=== PATIENT | female | born 1940 | race Caucasian/White ===

== ENCOUNTER 2016-11-27 13:05 | Emergency (ER) | payer MEDICARE, MEDICAID ==
[2016-11-27 13:13] VITALS: TEMP 97.9; BMI 36.1
[2016-11-27] MEDS ORDERED: DiphenhydrAMINE 50 mg/ml Inj IVP STA (13:42)
[2016-11-27 14:57] LABS: EOS % 0.4 % (1.5-5.0); GRAN # 2.76 (1.4-6.5); GRAN % 53.5 % (50.0-68.0); HEMOGLOBIN 12.4 g/dL (12.0-16.0); LYMPH % 38.1 % (22.0-35.0); MEAN CELL VOLUME 86.2 fl (80.0-105.0); MEAN CORPUSCULAR HGB CONC 34.8 g/dl (31.0-37.0); MEAN PLATELET VOLUME 11.2 fl (7.0-11.0); MONO # 0.4 (0.1-0.6); PLATELET COUNT 201 10^3/uL (120.0-450.0); RBC 4.13 10^6/uL (3.5-6.1); RED CELL DISTRIBUTION WIDTH 12.7 % (11.5-14.5); WHITE BLOOD COUNT 5.2 10^3/ul (4.5-11.0)
[2016-11-27 15:12] LABS: ALB/GLOB RATIO 1.2 (1.1-1.8); ALBUMIN 4.4 g/dL (3.0-4.8); ALT/SGPT 29 U/L (7-56); AST/SGOT 29 U/L (15-39); BLOOD UREA NITROGEN 14 mg/dL (7-21); CALCIUM 9.9 mg/dL (8.4-10.5); GFR AFRICAN-AMERICAN > 60; GFR NON-AFRICAN AMERICAN > 60
--- NOTE | 2016-11-27 15:34 | ED PDOC ---
Arrival/HPI - History of Present Illness Time/Duration: < week Symptom Onset: Sudden Symptom Course: Intermittent Quality: Aching, Throbbing Severity Level: Severe - General Chief Complaint: ENT Problem Time Seen by Provider: 11/27/16 13:22 - History of Present Illness Narrative History of Present Illness (Text): 11/27/16 15:34 76yo F with PMHx of HTN, DM, degenerative disc disease here for evaluation of severe neck pain and headache. Patient states that the pain started 3 days ago, described as intermittent, begins on the right side of the upper neck and right posterior head and radiates to the entire head. Palpation of the head makes the pain worse. Bright Light makes the pain worse. Never has had similar symptoms in the past. She states that she does not want to turn her head due to worsening pain. Patient also reports that she has been taking tylenol and ibuprofen which were releiving her pain over the past two days for a few hours, however, today she has not obtained any relief. Denies any nausea, no vomiting. no fevers or chills. No sick contacts. No chest pain. no sob. no visual disturbances. no auditory changes. No abd pain. She reports that she is supposed to have open heart valvular repair on 11/30 at [facility] in [place]. She is unable to provide any more history about her heart condition. PMHx: HTN, DM, DJD PSHx: Bilateral Knee replacement (Ra Harrison) Past Medical History - Provider Review Nursing Documentation Reviewed: Yes - Infectious Disease Hx of Infectious Diseases: None - Tetanus Immunization Tetanus Immunization: Unknown - Reproductive Menopause: Yes - Cardiac Hx Cardiac Disorders: Yes Hx Hypertension: Yes - Pulmonary Hx Respiratory Disorders: No - Neurological Hx Neurological Disorder: Yes Hx Dementia: Yes Hx Headaches: Yes Hx Migraine: Yes - HEENT Hx HEENT Disorder: No - Renal Hx Renal Disorder: No - Endocrine/Metabolic Hx Endocrine Disorders: Yes Hx Diabetes Mellitus Type 2: Yes - Hematological/Oncological Hx Blood Disorders: No - Integumentary Hx Dermatological Disorder: No - Musculoskeletal/Rheumatological Hx Musculoskeletal Disorders: Yes Hx Degenerative Joint Disease: Yes Hx Falls: Yes Hx Osteoarthritis: Yes - Gastrointestinal Hx Gastrointestinal Disorders: Yes (Gastritis) - Genitourinary/Gynecological Hx Genitourinary Disorders: No - Psychiatric Hx Psychophysiologic Disorder: No Hx Substance Use: No - Surgical History Hx Orthopedic Surgery: Yes (BL knee replacement) - Anesthesia Hx Anesthesia: Yes Hx Anesthesia Reactions: No Hx Malignant Hyperthermia: No - Suicidal Assessment Feels Threatened In Home Enviroment: No Family/Social History - Physician Review Nursing Documentation Reviewed: Yes Family/Social History: Unknown Family HX Smoking Status: Never Smoked Hx Alcohol Use: No Hx Substance Use: No Allergies/Home Meds Allergies/Adverse Reactions: Allergies No Known Allergies Allergy (Verified 11/27/16 13:13) Home Medications: Home Meds Medication Instructions Recorded Confirmed Acetaminophen/Butalbital/Caf 1 tab PO PRN PRN 11/27/16 11/27/16 [Fioricet] Brimonidine 0.2% [Alphagan 0.2% 1 drop LEFTEYE TID 11/27/16 11/27/16 Opht] Celecoxib [Celecoxib] 1 tab PO DAILY 11/27/16 11/27/16 Colchicine [Colcrys] 1 tab PO DAILY 11/27/16 11/27/16 Cyanocobalamin (Vitamin B-12) 1 ml SQ QWK 11/27/16 11/27/16 [Liquid B12] Diclofenac Sodium [Pennsaid] 1 appful TD DAILY 11/27/16 11/27/16 Difluprednate [Durezol] 1 drop LEFTEYE DAILY 11/27/16 11/27/16 Ergocalciferol (Vitamin D2) 1.25 mg PO QWK 11/27/16 11/27/16 [Vitamin D2] Ibandronate Sodium [Boniva] 70 mg PO DAILY 11/27/16 11/27/16 Linaclotide [Linzess] 1 tab PO DAILY 11/27/16 11/27/16 Memantine [Namenda] 28 mg PO DAILY 11/27/16 11/27/16 Oxycodone HCl/Acetaminophen 1 tab PO PRN PRN 11/27/16 11/27/16 [Oxycodone-Acetaminophen 5-325] Pregabalin [Lyrica] 1 tab PO TID 11/27/16 11/27/16 Rosuvastatin Calcium [Crestor] 1 tab PO DAILY 11/27/16 11/27/16 Sitagliptin Phos/Metformin HCl 1 tab PO BID 11/27/16 11/27/16 [Janumet 50-1,000 mg Tablet] Solifenacin Succinate [Vesicare] 1 tab PO DAILY 11/27/16 11/27/16 Timolol [Betimol] 1 drop LEFTEYE DAILY 11/27/16 11/27/16 amLODIPine [Norvasc] 1 tab PO DAILY 11/27/16 11/27/16 Review of Systems - Physician Review All systems were reviewed & negative as marked: Yes - Review of Systems Constitutional: Normal Eyes: Photophobia ENT: Normal Respiratory: absent: SOB, Cough Cardiovascular: absent: Chest Pain, Edema, Calf Pain Gastrointestinal: absent: Abdominal Pain, Nausea, Vomiting Genitourinary Female: absent: Dysuria Musculoskeletal: absent: Arthralgias, Back Pain Skin: absent: Rash, Pruritis Neurological: Headache. absent: Dizziness, Focal Weakness, Gait Changes Endocrine: absent: Diaphoresis Physical Exam Vital Signs Reviewed: Yes Temperature: Afebrile Blood Pressure: Normal Pulse: Regular Respiratory Rate: Normal Appearance: Positive for: Well-Appearing, Uncomfortable Pain Distress: Moderate Mental Status: Positive for: Alert and Oriented X 3 - Systems Exam Head: Present: Atraumatic, Normocephalic, Other (Tenderness on palpation of right posterior scalp and upper right neck. ) Extroacular Muscles: Present: EOMI Neck: Present: Paraspinal Tenderness. No: Meningeal Signs, MIDLINE TENDERNESS Respiratory/Chest: Present: Clear to Auscultation. No: Good Air Exchange, Respiratory Distress, Accessory Muscle Use, Wheezes, Rhonchi Cardiovascular: Present: Normal S1, S2. No: Murmurs Abdomen: No: Tenderness, Distention, Rebound, Guarding Upper Extremity: Present: Normal Inspection Lower Extremity: Present: Normal Inspection Neurological: Present: GCS=15 Skin: Present: Warm, Dry, Normal Color Psychiatric: Present: Alert, Oriented x 3 Medical Decision Making ED Course and Treatment: 11/27/16 15:44 76yo F with headache and neck pain - CBC/CMP - Reglan and Benadryl - Cyclobenzaprine, Toradol - CT head - MRI neck - Reassess and dispo 11/27/16 16:34 CT Head - No acute hemorrhage. 11/27/16 18:22 MRI taken. Awaiting Radiologist review 11/27/16 18:56 MRI neck with some degenerative disease, no significant spinal cord disease. Discussed findings with patient. Patient is cleared for discharge. All questions and concerns addressed. Patient understands and agrees with plan. ( Ra Harrison) The pts main complaint to me is posterior neck pain. This does radiate up to her occipital scalp and her headache I believe is secondary. She has little active rom of her neck due to pain although I am able to passively range it further. her neuro exam is non-focal, there is nothing else to suggest meningitis, and she is quite tender all over her paracervical musculature- I believe this mechanical in nature. MRI done no acute findings. the pt did report improvement with rx in the ED. (Arjun Cifuentes) - Lab Interpretations Lab Results: 11/27/16 14:30 11/27/16 14:30 Lab Results 11/27/16 14:30: Sodium 140, Potassium 3.9, Chloride 101, Carbon Dioxide 29, Anion Gap 14, BUN 14, Creatinine 0.5, Est GFR ( Amer) > 60, Est GFR (Non- Af Amer) > 60, Random Glucose 101, Calcium 9.9, Total Bilirubin 0.3, AST 29, ALT 29, Alkaline Phosphatase 70, Total Protein 8.1, Albumin 4.4, Globulin 3.7, Albumin/Globulin Ratio 1.2 11/27/16 14:30: WBC 5.2, RBC 4.13, Hgb 12.4, Hct 35.6 L, MCV 86.2, MCH 30.0, MCHC 34.8, RDW 12.7, Plt Count 201, MPV 11.2 H, Gran % 53.5, Lymph % (Auto) 38.1 H, [place] % (Auto) 8.0 H, Eos % (Auto) 0.4 L, Baso % (Auto) 0.0, Gran # 2.76 , Lymph # 2.0, [place] # 0.4, Eos # 0.0, Baso # 0.00 - RAD Interpretation Radiology Orders: 11/27/16 13:37 HEAD W/O CONTRAST [CT] Stat 11/27/16 18:05 SPINAL CANAL CERVICAL W/O CONT [MRI] Stat - Medication Orders Current Medication Orders: Discontinued Medications Cyclobenzaprine HCl (Flexeril) 10 mg PO STAT STA Stop: 11/27/16 15:52 Last Admin: 11/27/16 15:58 Dose: 10 mg Diphenhydramine HCl (Benadryl) 25 mg IVP STAT STA Stop: 11/27/16 13:43 Last Admin: 11/27/16 14:35 Dose: 25 mg Ketorolac Tromethamine (Toradol) 10 mg IVP STAT STA Stop: 11/27/16 15:52 Last Admin: 11/27/16 15:58 Dose: 10 mg Ketorolac Tromethamine (Toradol) 30 mg IM STAT STA Stop: 11/27/16 16:06 Last Admin: 11/27/16 16:09 Dose: 30 mg Ketorolac Tromethamine (Toradol) Confirm Administered Dose 30 mg .ROUTE .STK- MED ONE Stop: 11/27/16 16:06 Last Admin: 11/27/16 16:09 Dose: Metoclopramide HCl (Reglan) 10 mg IVP STAT STA Stop: 11/27/16 13:38 Last Admin: 11/27/16 14:35 Dose: 10 mg Morphine Sulfate (Morphine) 4 mg IVP STAT STA Stop: 11/27/16 17:33 Last Admin: 11/27/16 18:13 Dose: 4 mg - PA / [employer]K CLERK / Resident Statement / has reviewed & agrees with the documentation as recorded. / has examined the patient and agrees with the treatment plan. Disposition/Present on Arrival - Present on Arrival Any Indicators Present on Arrival: No History of DVT/PE: No History of Uncontrolled Diabetes: No Urinary Catheter: No History of Decub. Ulcer: No History Surgical Site Infection Following: None - Disposition Have Diagnosis and Disposition been Completed?: Yes Disposition Time: 18:57 Patient Plan: Discharge - Disposition Diagnosis: Neck pain Disposition: HOME/ ROUTINE Condition: GOOD Discharge Instructions (ExitCare): Cervical Strain (GEN) Additional Instructions: 1. Follow up with your Primary care Physician within 3 days. 2. Take pain meds and muscle relaxant as needed sparingly 3. Return to the ER with any concerning symptoms. Prescriptions: Cyclobenzaprine [Flexeril] 5 mg PO BID PRN #14 tab PRN Reason: Muscle Spasm Ibuprofen [Motrin Tab] 400 mg PO Q8 #21 tab Referrals: Shon Price MD [Primary Care Provider] - Follow up with primary Forms: [employer] (Ukrainian)
--- NOTE | 2016-11-27 16:25 | CT ---
PROCEDURE: CT HEAD WITHOUT CONTRAST. HISTORY: headache COMPARISON: None available. TECHNIQUE: Axial computed tomography images were obtained through the head/brain without intravenous contrast. Radiation dose: Total exam DLP = 725.84 mGy-cm. This CT exam was performed using one or more of the following dose reduction techniques: Automated exposure control, adjustment of the mA and/or kV according to patient size, and/or use of iterative reconstruction technique. FINDINGS: HEMORRHAGE: No intracranial hemorrhage. BRAIN: No mass effect or edema. No atrophy or chronic microvascular ischemic changes. VENTRICLES: Unremarkable. No hydrocephalus. CALVARIUM: Unremarkable. PARANASAL SINUSES: Unremarkable as visualized. No significant inflammatory changes. MASTOID AIR CELLS: Unremarkable as visualized. No inflammatory changes. OTHER FINDINGS: None. IMPRESSION: No intracranial mass, hemorrhage or evidence of acute infarct.
[2016-11-27] MEDS ORDERED: Morphine 4 mg/ml ISec IVP STA (17:32)
[2016-11-27 18:27] VITALS: O2SAT 100
[2016-11-27 19:31] VITALS: BP 131/63; PULSE 87; RESP 18
--- NOTE | 2016-11-28 12:49 | MRI ---
PROCEDURE: MR CERVICAL SPINE WITHOUT CONTRAST HISTORY: neck pain, headache COMPARISON: None available. TECHNIQUE: Multiecho multiplanar sequences were performed through the cervical spine without the use of intravenous contrast. FINDINGS: Normal lordotic curvature. Craniocervical junction unremarkable. Vertebral body heights preserved. No marrow signal abnormality. Normal cervical cord. No paraspinal abnormality. C2-C3: No disc herniation, spinal canal stenosis or neural foraminal narrowing. C3-C4: Posterior disc ridge complex effacing the CSF space ventrally with bilateral uncovertebral facet disease and bilateral foraminal stenosis. C4-C5: Disc bulge with central canal stenosis and bilateral spondylotic foraminal stenosis. C5-C6: Disc bulge CSF space indentation and flattening of the ventral margin of the cord and bilateral spondylotic foraminal stenosis. C6-C7: Disc bulge with thecal sac indentation and bilateral proximal foraminal stenosis. C7-T1: No disc herniation, spinal canal stenosis or neural foraminal narrowing. OTHER FINDINGS: None. IMPRESSION: Multilevel disc bulging as discussed above.
== END 2016-11-27 19:10 | disposition home or self-care (01) ==
LOC: ED 13:05
DX: M54.2 Cervicalgia (principal); I10 Essential (primary) hypertension; E11.9 Type 2 diabetes mellitus without complications
CPT/HCPCS: 70450; 72141; 80053; 85025; 96372; 96374; 96375; 99285; J1200; J1885; J2270; J2765

== ENCOUNTER 2016-12-05 01:13 | Observation (INO) | payer MEDICARE, MEDICAID ==
[2016-12-05 01:14] VITALS: BMI 36.1
[2016-12-05 01:22] VITALS: RESP 18; TEMP 98.2
--- NOTE | 2016-12-05 01:38 | ED PDOC ---
Arrival/HPI - General Chief Complaint: Back Pain Time Seen by Provider: 12/05/16 01:32 - History of Present Illness Narrative History of Present Illness (Text): 12/05/16 02:18 76yo female with neck pain. Pt states she has a hx of this exact type of pain. She also states she was recently seen in the ER and had an MRI done. Also states she saw her PMD this week as well. Denies upper extremity numbness, weakness, pain or discoloration. States her pain feels similar to previous. Denies any f/c, denies other complaints. Past Medical History - Provider Review Nursing Documentation Reviewed: Yes - Infectious Disease Hx of Infectious Diseases: None - Tetanus Immunization Tetanus Immunization: Unknown - Cardiac Hx Cardiac Disorders: Yes Hx Hypertension: Yes - Pulmonary Hx Respiratory Disorders: No - Neurological Hx Neurological Disorder: Yes Hx Dementia: Yes Hx Headaches: Yes Hx Migraine: Yes - HEENT Hx HEENT Disorder: No - Renal Hx Renal Disorder: No - Endocrine/Metabolic Hx Endocrine Disorders: Yes Hx Diabetes Mellitus Type 2: Yes - Hematological/Oncological Hx Blood Disorders: No - Integumentary Hx Dermatological Disorder: No - Musculoskeletal/Rheumatological Hx Musculoskeletal Disorders: Yes Hx Degenerative Joint Disease: Yes Hx Falls: Yes Hx Osteoarthritis: Yes - Gastrointestinal Hx Gastrointestinal Disorders: Yes (Gastritis) - Genitourinary/Gynecological Hx Genitourinary Disorders: No - Psychiatric Hx Psychophysiologic Disorder: No Hx Substance Use: No - Surgical History Hx Orthopedic Surgery: Yes (BL knee replacement) - Anesthesia Hx Anesthesia: Yes Hx Anesthesia Reactions: No Hx Malignant Hyperthermia: No - Suicidal Assessment Feels Threatened In Home Enviroment: No Family/Social History Family/Social History: Unknown Family HX Smoking Status: Never Smoked Hx Alcohol Use: No Hx Substance Use: No Allergies/Home Meds Allergies/Adverse Reactions: Allergies No Known Allergies Allergy (Verified 11/27/16 13:13) Home Medications: Home Meds Medication Instructions Recorded Confirmed Acetaminophen/Butalbital/Caf 1 tab PO PRN PRN 11/27/16 12/05/16 [Fioricet] Brimonidine 0.2% [Alphagan 0.2% 1 drop LEFTEYE TID 11/27/16 12/05/16 Opht] Celecoxib [Celecoxib] 1 tab PO DAILY 11/27/16 12/05/16 Colchicine [Colcrys] 1 tab PO DAILY 11/27/16 12/05/16 Cyanocobalamin (Vitamin B-12) 1 ml SQ QWK 11/27/16 12/05/16 [Liquid B12] Diclofenac Sodium [Pennsaid] 1 appful TD DAILY 11/27/16 12/05/16 Difluprednate [Durezol] 1 drop LEFTEYE DAILY 11/27/16 12/05/16 Ergocalciferol (Vitamin D2) 1.25 mg PO QWK 11/27/16 12/05/16 [Vitamin D2] Ibandronate Sodium [Boniva] 70 mg PO DAILY 11/27/16 12/05/16 Linaclotide [Linzess] 1 tab PO DAILY 11/27/16 12/05/16 Memantine [Namenda] 28 mg PO DAILY 11/27/16 12/05/16 Oxycodone HCl/Acetaminophen 1 tab PO PRN PRN 11/27/16 12/05/16 [Oxycodone-Acetaminophen 5-325] Pregabalin [Lyrica] 1 tab PO TID 11/27/16 12/05/16 Rosuvastatin Calcium [Crestor] 1 tab PO DAILY 11/27/16 12/05/16 Sitagliptin Phos/Metformin HCl 1 tab PO BID 11/27/16 12/05/16 [Janumet 50-1,000 mg Tablet] Solifenacin Succinate [Vesicare] 1 tab PO DAILY 11/27/16 12/05/16 Timolol [Betimol] 1 drop LEFTEYE DAILY 11/27/16 12/05/16 amLODIPine [Norvasc] 1 tab PO DAILY 11/27/16 12/05/16 Physical Exam - Physical Exam Narrative Physical Exam (Text): 12/05/16 02:22 - Review of Systems Constitutional: Normal. absent: Fatigue, Weight Change, Fevers Eyes: Normal ENT: denies sore throat, denies tristhmus Respiratory: Normal. absent: SOB, Cough, Sputum Cardiovascular: absent: Chest Pain, Palpitations, Syncope Gastrointestinal: Normal. absent: Abdominal Pain, Diarrhea, Nausea, Vomiting Genitourinary: Normal. absent: Dysuria, Frequency, Hematuria, vaginal bleeding Musculoskeletal: Neck pain. absent: Arthralgias, Back Pain Skin: no rashes, no erythema Neurological: absent: Focal Weakness Endocrine: Normal Hemo/Lymphatic: Normal Psychiatric: No suicidal or homicidal ideations Physical exam Patient appears age appropriate in no distress, speaking full sentences without difficulty - Systems Exam Head: Present: Atraumatic, Normocephalic Pupils: Present: PERRL Extroacular Muscles: Present: EOMI Conjunctiva: Present: Normal Mouth: Present: Moist Mucous Membranes Neck: Present: Normal Range of Motion. R. paraspinal tenderness to palpation and hypertonicity. Pain quality reproducible with palpation. No: MIDLINE TENDERNESS Respiratory/Chest: Present: Clear to Auscultation, Good Air Exchange. No: Respiratory Distress, Accessory Muscle Use, Tachypneic Cardiovascular: Present: Regular Rate and Rhythm, Peripheal Pulses Present. Abdomen: Present: Normal Bowel Sounds. No: Tenderness, Distention, Peritoneal Signs, Rebound, Guarding Back: Present: Normal Inspection. No: Midline Tenderness, Paraspinal Tenderness Upper Extremity: Present: Normal Inspection. No: Cyanosis, Edema Lower Extremity: Present: Normal Inspection. No: Edema Neurological: Present: GCS=15, Speech Normal, cranial nerves II through XII fully intact with no cerebellar abnormality, neurosensory fully intact. No focal neurological deficits. Skin: Present: Warm, Dry, Normal Color. No: Rashes Lymphatic: Present: OX3, NI, NC Psychiatric: Present: Alert, Oriented x 3, Normal Insight, Normal Concentration Vital Signs Reviewed: Yes Vital Signs Temp Pulse Resp BP Pulse Ox 12/05/16 01:20 98.2 F 84 18 112/64 99 Temperature: Afebrile Blood Pressure: Normal Pulse: Regular Respiratory Rate: Normal Appearance: Positive for: Well-Appearing Pain Distress: Mild Mental Status: Positive for: Alert and Oriented X 3 Medical Decision Making ED Course and Treatment: Progress Notes: 76yo female with neck pain. On exam, Normal Range of Motion. R. paraspinal tenderness to palpation and hypertonicity. Pain quality reproducible with palpation. No midline tenderness. Previous MRI from 11/27/2016 reviewed IMPRESSION: Multilevel disc bulging as discussed above. Previous Head CT from 11/27/2016 reviewed IMPRESSION: No intracranial mass, hemorrhage or evidence of acute infarct. 12/05/16 03:08 pt still c/o pain morphine ordered states she does not feel comfortable being dc'd home no PMD at [facility] 12/05/16 03:[address] Izquierdo, accepted obs to hospitalist service pt aware of and agrees with plan - Lab Interpretations Lab Results: 12/05/16 02:55 12/05/16 02:55 Lab Results 12/05/16 02:55: Sodium 139, Potassium 4.5, Chloride 100, Carbon Dioxide 26, Anion Gap 18, BUN 15, Creatinine 0.5, Est GFR ( Amer) > 60, Est GFR (Non- Af Amer) > 60, Random Glucose 111 H, Calcium 9.4, Total Bilirubin 0.4, AST 31, ALT 28, Alkaline Phosphatase 59, Total Protein 7.6, Albumin 3.9, Globulin 3.7, Albumin/Globulin Ratio 1.1 12/05/16 02:55: WBC 5.4, RBC 3.61, Hgb 10.6 L, Hct 31.1 L, MCV 86.1, MCH 29.4, MCHC 34.1, RDW 12.6, Plt Count 220, MPV 11.7 H, Gran % 45.4 L, Lymph % (Auto) 45.3 H, [place] % (Auto) 8.7 H, Eos % (Auto) 0.4 L, Baso % (Auto) 0.2, Gran # 2.46 , Lymph # 2.5, [place] # 0.5, Eos # 0.0, Baso # 0.01 - Medication Orders Current Medication Orders: Discontinued Medications Diazepam (Valium) 5 mg PO ONCE ONE Stop: 12/05/16 01:33 Last Admin: 12/05/16 01:41 Dose: 5 mg Ketorolac Tromethamine (Toradol) 30 mg IM STAT STA Stop: 12/05/16 01:33 Last Admin: 12/05/16 01:41 Dose: 30 mg Morphine Sulfate (Morphine) 6 mg IVP STAT STA Stop: 12/05/16 02:48 Last Admin: 12/05/16 02:58 Dose: 6 mg Disposition/Present on Arrival - Present on Arrival Any Indicators Present on Arrival: No History of DVT/PE: No History of Uncontrolled Diabetes: No Urinary Catheter: No History of Decub. Ulcer: No History Surgical Site Infection Following: None - Disposition Have Diagnosis and Disposition been Completed?: Yes Diagnosis: Neck pain Disposition: HOSPITALIZED Disposition Time: 03:44 Patient Plan: Observation Patient Problems: Current Active Problems Problem Status Onset Neck pain Acute Condition: FAIR
[2016-12-05 03:36] LABS: ALB/GLOB RATIO 1.1 (1.1-1.8); ALKALINE PHOSPHATASE 59 U/L (38-133); ALT/SGPT 28 U/L (7-56); AST/SGOT 31 U/L (15-39); BILIRUBIN,TOTAL 0.4 mg/dL (0.2-1.3); BLOOD UREA NITROGEN 15 mg/dL (7-21); CALCIUM 9.4 mg/dL (8.4-10.5); CARBON DIOXIDE 26 mmol/L (21-33); CHLORIDE 100 mmol/L (98-107); GFR AFRICAN-AMERICAN > 60; GLUCOSE,RANDOM 111 mg/dL (70-110); POTASSIUM 4.5 mmol/L (3.6-5.0); SODIUM 139 mmol/L (132-148); TOTAL PROTEIN 7.6 g/dL (5.8-8.3)
[2016-12-05 03:52] LABS: BASO # 0.01 K/mm3 (0.0-2.0); BASO % 0.2 % (0.0-3.0); EOS % 0.4 % (1.5-5.0); GRAN # 2.46 (1.4-6.5); GRAN % 45.4 % (50.0-68.0); HEMATOCRIT 31.1 % (36.0-48.0); LYMPH # 2.5 (1.2-3.4); LYMPH % 45.3 % (22.0-35.0); MEAN CELL VOLUME 86.1 fl (80.0-105.0); MEAN CORPUSCULAR HEMOGLOBIN 29.4 pg (25.0-35.0); MEAN CORPUSCULAR HGB CONC 34.1 g/dl (31.0-37.0); MEAN PLATELET VOLUME 11.7 fl (7.0-11.0); MONO # 0.5 (0.1-0.6); MONO % 8.7 % (1.0-6.0); RED CELL DISTRIBUTION WIDTH 12.6 % (11.5-14.5); WHITE BLOOD COUNT 5.4 10^3/ul (4.5-11.0)
--- NOTE | 2016-12-05 04:10 | CP.PCM.HP ---
<Federico Carmichael - Last Filed: 12/05/16 04:39> History of Present Illness - History of Present Illness History of Present Illness: CC: Neck pain HPI: Pt is a 76 year old female with pmh sig for HTN, aortic stenosis, DM2, and cervical bulging discs that presents to ED with intractable neck pain. Patient reports she has had pain for past week. She reports being seen in the ED last week and evaluated for same pain. She had an MRI done showing disc bulging at C3 -C4, C4-C5, C5-C6. C6-C7 withcentral canal stenosis and foraminal stenosis throughout. Patient reports seeing her PMD Dr. Albert kong in the week and recieving pain medications and soft collar to wear. She reports wearing the soft collar and taking medication without resolution of her pain. She denies any numbness, weakness, change in skin color, or focal deficits in her upper extremities. Patient reports limited range of motion of her neck with poor mobility turning to the right. Patient denies chest pain, shortness of breath, abdominal pain, f/c/n/v. PMD: as above PSH: Knee surgery, breast biopsy, b/l knee replacement FMH: Denies SH: Denies tobacco, EOTH, ID, Lives alone All: NKDA Meds: See MAR Present on Admission - Present on Admission Any Indicators Present on Admission: No History of DVT/PE: No History of Uncontrolled Diabetes: No Urinary Catheter: No Decubitus Ulcer Present: No Review of Systems - Review of Systems All systems: reviewed and no additional remarkable complaints except Review of Systems: except for mentioned in HPI Past Patient History - Infectious Disease Hx of Infectious Diseases: None - Tetanus Immunizations Tetanus Immunization: Unknown - Past Medical History & Family History Past Medical History?: Yes - Past Social History Smoking Status: Never Smoked Alcohol: None Drugs: Denies - CARDIAC Hx Cardiac Disorders: Yes Hx Hypertension: Yes - PULMONARY Hx Respiratory Disorders: No - NEUROLOGICAL Hx Neurological Disorder: Yes Hx Dementia: Yes Hx Migraine: Yes - HEENT Hx HEENT Problems: No - RENAL Hx Chronic Kidney Disease: No - ENDOCRINE/METABOLIC Hx Endocrine Disorders: Yes Hx Diabetes Mellitus Type 2: Yes - HEMATOLOGICAL/ONCOLOGICAL Hx Blood Disorders: No - INTEGUMENTARY Hx Dermatological Problems: No - MUSCULOSKELETAL/RHEUMATOLOGICAL Hx Musculoskeletal Disorders: Yes Hx Degenerative Joint Disease: Yes Hx Falls: Yes Hx Osteoarthritis: Yes - GASTROINTESTINAL Hx Gastrointestinal Disorders: Yes (Gastritis) - GENITOURINARY/GYNECOLOGICAL Hx Genitourinary Disorders: No - PSYCHIATRIC Hx Psychophysiologic Disorder: No Hx Substance Use: No - SURGICAL HISTORY Hx Orthopedic Surgery: Yes (BL knee replacement) - ANESTHESIA Hx Anesthesia: Yes Hx Anesthesia Reactions: No Hx Malignant Hyperthermia: No Meds Allergies/Adverse Reactions: Allergies Allergy/AdvReac Type Severity Reaction Status Date / Time No Known Allergies Allergy Verified 11/27/16 13:13 Physical Exam - Head Exam Head Exam: ATRAUMATIC, NORMAL INSPECTION, NORMOCEPHALIC - Eye Exam Eye Exam: EOMI, PERRL - ENT Exam ENT Exam: Mucous Membranes Moist, Normal Exam - Neck Exam Neck exam: Positive for: Tenderness (right sided paravertebral muscles). Negative for: Full Rom Additional comments: Limited ROM of neck, able to turn to right 20-30 degrees, able to turn left 45- 60 degrees - Respiratory Exam Respiratory Exam: Clear to Auscultation Bilateral, NORMAL BREATHING PATTERN - Cardiovascular Exam Cardiovascular Exam: REGULAR RHYTHM, +S1, +S2, Systolic Murmur (significant systolic murmur, Aortic Stenosis ) - GI/Abdominal Exam GI & Abdominal Exam: Normal Bowel Sounds, Soft - Extremities Exam Extremities exam: Positive for: normal inspection, pedal pulses present - Back Exam Back exam: NORMAL INSPECTION - Neurological Exam Neurological exam: Alert, CN II-XII Intact, Normal Gait, Oriented x3, Reflexes Normal Additional comments: Motor and sensory grossly intact, no focal deficits, weakness, paraesthesias noted in upper extremities - Psychiatric Exam Psychiatric exam: Normal Affect, Normal Mood - Skin Skin Exam: Dry, Intact, Normal Color, Warm Results - Vital Signs Recent Vital Signs: Last Vital Signs Temp 98.2 F 12/05/16 01:20 Pulse 84 12/05/16 01:20 Resp 18 12/05/16 01:20 BP 112/64 12/05/16 01:20 Pulse Ox 99 12/05/16 01:20 - Labs Result Diagrams: 12/05/16 02:55 12/05/16 02:55 Labs: Laboratory Results - last 24 hr 12/05/16 12/05/16 02:55 02:55 WBC 5.4 RBC 3.61 Hgb 10.6 L Hct 31.1 L MCV 86.1 MCH 29.4 MCHC 34.1 RDW 12.6 Plt Count 220 MPV 11.7 H Gran % 45.4 L Lymph % (Auto) 45.3 H [place] % (Auto) 8.7 H Eos % (Auto) 0.4 L Baso % (Auto) 0.2 Gran # 2.46 Lymph # 2.5 [place] # 0.5 Eos # 0.0 Baso # 0.01 Sodium 139 Potassium 4.5 Chloride 100 Carbon Dioxide 26 Anion Gap 18 BUN 15 Creatinine 0.5 Est GFR ( Amer) > 60 Est GFR (Non-Af Amer) > 60 Random Glucose 111 H Calcium 9.4 Total Bilirubin 0.4 AST 31 ALT 28 Alkaline Phosphatase 59 Total Protein 7.6 Albumin 3.9 Globulin 3.7 Albumin/Globulin Ratio 1.1 Assessment & Plan - Assessment and Plan (Free Text) Assessment: Pt is a 76 year old female with pmh sig for HTN, aortic stenosis, DM2, and cervical bulging discs that presents to ED with intractable neck pain. Patient reports she has had pain for past week. Plan: 1. Cervical vertebral disc bulging - MRI of cervical spine showing multilevel disc bulging as well as evidence of bilateral proximal foraminal stenosis in C3-C4, C5-C6, C6-C7 - PE shows no neurological deficits in UE b/l - Patient has seen PMD and prescribed pain medications - Advise her to follow up with PMD for spinal surgeon and pain management referral - Pain control with PO medications - Flexeril 10mg, Percocet 5/325mg, Kasey - Cervical soft collar - Neurosurgery consult, recs appreciated 2. Hx of HTN - Stable - Continue to monitor 3. Hx of DM2 - Continue home metformin - ACHS 3. GI ppx - Pepcid Case discussed and reviewed with attending - Date & Time Date: 12/05/16 Time: 04:13 <Madelin Izquierdo - Last Filed: 12/06/16 03:03> Results - Vital Signs Recent Vital Signs: Last Vital Signs Temp 98.2 F 12/05/16 08:13 Pulse 76 12/05/16 08:13 Resp 18 12/05/16 08:13 BP 96/58 L 12/05/16 08:13 Pulse Ox 98 12/05/16 08:13 - Labs Result Diagrams: 12/05/16 02:55 12/05/16 02:55
[2016-12-05] MEDS ORDERED: Oxycodone/Acetaminophen 5/325 mg Tab PO PRN (04:17)
[2016-12-05] MEDS ORDERED: Apap-Butalbital-Caffeine 325-50-40mg Tab PO PRN (04:33)
[2016-12-05] MEDS: Oxycodone/Acetaminophen 5/325 mg Tab PO SCH ×2 (04:40→10:32)
[2016-12-05 08:14] VITALS: BP 96/58; PULSE 76; O2SAT 98
[2016-12-05] MEDS ORDERED: LINACLOTIDE PO SCH (10:00)
[2016-12-05] MEDS ORDERED: Non Formulary Medication (Sitagliptin Phos/Metformin Hcl [Janumet 50-1,000 Mg Tablet] 1 TA PO SCH (10:00)
[2016-12-05] MEDS ORDERED: CELECOXIB PO SCH (10:00)
--- NOTE | 2016-12-05 13:21 | CP.PCM.CON ---
History of Present Illness - History of Present Illness History of Present Illness: SPINE CONSULT Pt seen and examined. Full consult dictated..Rec soft collar as needed, along with PT. Would cont Toradol if ok medically to give. Pt sched for open heart surg in [place] on Wednesday so would stop NSAID's. Past Patient History - Infectious Disease Hx of Infectious Diseases: None - Tetanus Immunizations Tetanus Immunization: Unknown - Past Medical History & Family History Past Medical History?: Yes - Past Social History Smoking Status: Never Smoked - CARDIAC Hx Cardiac Disorders: Yes Hx Hypertension: Yes - PULMONARY Hx Respiratory Disorders: No - NEUROLOGICAL Hx Neurological Disorder: Yes Hx Dementia: Yes Hx Migraine: Yes - HEENT Hx HEENT Problems: No - RENAL Hx Chronic Kidney Disease: No - ENDOCRINE/METABOLIC Hx Endocrine Disorders: Yes Hx Diabetes Mellitus Type 2: Yes - HEMATOLOGICAL/ONCOLOGICAL Hx Blood Disorders: No - INTEGUMENTARY Hx Dermatological Problems: No - MUSCULOSKELETAL/RHEUMATOLOGICAL Hx Musculoskeletal Disorders: Yes Hx Degenerative Joint Disease: Yes Hx Falls: Yes Hx Osteoarthritis: Yes - GASTROINTESTINAL Hx Gastrointestinal Disorders: Yes (Gastritis) - GENITOURINARY/GYNECOLOGICAL Hx Genitourinary Disorders: No - PSYCHIATRIC Hx Psychophysiologic Disorder: No - SURGICAL HISTORY Hx Orthopedic Surgery: Yes (BL knee replacement) - ANESTHESIA Hx Anesthesia: Yes Hx Anesthesia Reactions: No Hx Malignant Hyperthermia: No Meds Allergies/Adverse Reactions: Allergies Allergy/AdvReac Type Severity Reaction Status Date / Time No Known Allergies Allergy Verified 11/27/16 13:13 - Medications Medications: Current Medications Acetaminophen (Tylenol 325mg Tab) 650 mg PO Q6H PRN PRN Reason: Pain, Mild (1-3) Atorvastatin Calcium (Lipitor) 40 mg PO DAILY [facility] Last Admin: 12/05/16 10:32 Dose: 40 mg Colchicine (Colocrys) 0.6 mg PO DAILY [facility] Last Admin: 12/05/16 10:32 Dose: 0.6 mg Famotidine (Pepcid) 20 mg PO BID [facility] Last Admin: 12/05/16 10:32 Dose: 20 mg Home Med (Home Med) 1 unit PO DAILY [facility] Home Med (Home Med) 1 unit PO DAILY [facility] Metformin HCl (Glucophage) 1,000 mg PO BID [facility] Last Admin: 12/05/16 10:32 Dose: 1,000 mg Oxycodone/Acetaminophen (Percocet 5/325 Mg Tab) 1 tab PO Q6H [facility] Stop: 12/08/16 04:31 Last Admin: 12/05/16 10:32 Dose: 1 tab Pregabalin (Lyrica) 150 mg PO TID [facility] Last Admin: 12/05/16 10:32 Dose: 150 mg Results - Vital Signs Recent Vital Signs: Last Vital Signs Temp 98.2 F 12/05/16 08:13 Pulse 76 12/05/16 08:13 Resp 18 12/05/16 08:13 BP 96/58 L 12/05/16 08:13 Pulse Ox 98 12/05/16 08:13 - Labs Result Diagrams: 12/05/16 02:55 12/05/16 02:55
--- NOTE | 2016-12-05 16:31 | CP.PCM.DIS ---
<PONCE HOUSER - Last Filed: 12/05/16 16:34> Provider - Provider Date of Admission: 12/05/16 03:42 Attending physician: Eliel Francois MD Primary care physician: Shon Price MD Consults: Neurosurg: Baltazar Time Spent in preparation of Discharge (in minutes): 45 Hospital Course - Lab Results Lab Results: Most Recent Lab Values WBC 5.4 10^3/ul (4.5-11.0) 12/05/16 02:55 RBC 3.61 10^6/uL (3.5-6.1) 12/05/16 02:55 Hgb 10.6 g/dL (12.0-16.0) L 12/05/16 02:55 Hct 31.1 % (36.0-48.0) L 12/05/16 02:55 MCV 86.1 fl (80.0-105.0) 12/05/16 02:55 MCH 29.4 pg (25.0-35.0) 12/05/16 02:55 MCHC 34.1 g/dl (31.0-37.0) 12/05/16 02:55 RDW 12.6 % (11.5-14.5) 12/05/16 02:55 Plt Count 220 10^3/uL (120.0-450.0) 12/05/16 02:55 MPV 11.7 fl (7.0-11.0) H 12/05/16 02:55 Gran % 45.4 % (50.0-68.0) L 12/05/16 02:55 Lymph % (Auto) 45.3 % (22.0-35.0) H 12/05/16 02:55 [place] % (Auto) 8.7 % (1.0-6.0) H 12/05/16 02:55 Eos % (Auto) 0.4 % (1.5-5.0) L 12/05/16 02:55 Baso % (Auto) 0.2 % (0.0-3.0) 12/05/16 02:55 Gran # 2.46 (1.4-6.5) 12/05/16 02:55 Lymph # 2.5 (1.2-3.4) 12/05/16 02:55 [place] # 0.5 (0.1-0.6) 12/05/16 02:55 Eos # 0.0 (0.0-0.7) 12/05/16 02:55 Baso # 0.01 K/mm3 (0.0-2.0) 12/05/16 02:55 Sodium 139 mmol/L (132-148) 12/05/16 02:55 Potassium 4.5 mmol/L (3.6-5.0) 12/05/16 02:55 Chloride 100 mmol/L (98-107) 12/05/16 02:55 Carbon Dioxide 26 mmol/L (21-33) 12/05/16 02:55 Anion Gap 18 (10-20) 12/05/16 02:55 BUN 15 mg/dL (7-21) 12/05/16 02:55 Creatinine 0.5 mg/dL (0.5-1.4) 12/05/16 02:55 Est GFR ( Amer) > 60 12/05/16 02:55 Est GFR (Non-Af Amer) > 60 12/05/16 02:55 Random Glucose 111 mg/dL (70-110) H 12/05/16 02:55 Calcium 9.4 mg/dL (8.4-10.5) 12/05/16 02:55 Total Bilirubin 0.4 mg/dL (0.2-1.3) 12/05/16 02:55 AST 31 U/L (15-39) 12/05/16 02:55 ALT 28 U/L (7-56) 12/05/16 02:55 Alkaline Phosphatase 59 U/L (38-133) 12/05/16 02:55 Total Protein 7.6 g/dL (5.8-8.3) 12/05/16 02:55 Albumin 3.9 g/dL (3.0-4.8) 12/05/16 02:55 Globulin 3.7 gm/dL 12/05/16 02:55 Albumin/Globulin Ratio 1.1 (1.1-1.8) 12/05/16 02:55 - Hospital Course Hospital Course: Pt is a 76 year old female with pmh sig for HTN, aortic stenosis, DM2, and cervical bulging discs that presents to ED with intractable neck pain. Patient reports she has had pain for past week. She reports being seen in the ED last week and evaluated for same pain. She had an MRI done showing disc bulging at C3 -C4, C4-C5, C5-C6. C6-C7 with central canal stenosis and foraminal stenosis throughout. Patient reports seeing her PMD Dr. Albert kong in the week and receiving pain medications and soft collar to wear. She reports wearing the soft collar and taking medication without resolution of her pain. She denies any numbness, weakness, change in skin color, or focal deficits in her upper extremities. Patient reports limited range of motion of her neck with poor mobility turning to the right. In the ED, labs were obtained. Vital signs were stable. Labs were unremarkable. Neurosurgery was consulted. Recommended soft collar, PT, and stop NSAIDs. Today, pt was seen and examined at bedside. Pt states that her neck still hurts, but denies any acute events since admission. Pt denies CP, SOB, n/v/d, abdominal pain, chills, fevers, vertigo, SPRING, or dysuria. Pt is scheduled for open heart surgery in [place] on Wednesday, thus patient will be discharged and will cont home pain medications and muscle relaxers. Discharge Exam - Head Exam Head Exam: ATRAUMATIC, NORMAL INSPECTION, NORMOCEPHALIC - Eye Exam Eye Exam: EOMI, PERRL - ENT Exam ENT Exam: Mucous Membranes Moist - Neck Exam Neck exam: Tenderness Additional comments: limited ROM, TTP - Respiratory Exam Respiratory Exam: Clear to PA & Lateral. absent: Rales, Rhonchi, Wheezes - Cardiovascular Exam Cardiovascular Exam: RRR. absent: Diastolic murmur, Gallop, Rubs, Systolic Murmur - GI/Abdominal Exam GI & Abdominal Exam: Soft. absent: Distended, Guarding, Rebound, Rigid, Tenderness - Neurological Exam Neurological exam: Alert, CN II-XII Intact, Oriented x3 - Psychiatric Exam Psychiatric exam: Normal Affect, Normal Mood - Skin Skin Exam: Dry, Intact, Normal Color, Warm Discharge Plan - Follow Up Plan Condition: FAIR Disposition: HOME/ ROUTINE Instructions: Pneumococcal Vaccine for Adults (DC), Cervical Spinal Stenosis ( DC) Additional Instructions: 1. Surgery as scheduled 2. Follow up with neurosurgery, Dr. Ledesma 3. Follow up with PMD within 1 week 4. Do not take NSAIDs such as ibuprofen and celebrex until further notice 5. Take medications as prescribed 6. Continue soft collar use 7. Return to ED if symptoms worsen Referrals: Eliel Ledesma MD [Staff Provider] - Shon Price MD [Primary Care Provider] - <Eliel Francois - Last Filed: 12/05/16 16:53> Provider - Provider Date of Admission: 12/05/16 03:42 Attending physician: Eliel Francois MD Primary care physician: Shon Price MD Hospital Course - Lab Results Lab Results: Most Recent Lab Values WBC 5.4 10^3/ul (4.5-11.0) 12/05/16 02:55 RBC 3.61 10^6/uL (3.5-6.1) 12/05/16 02:55 Hgb 10.6 g/dL (12.0-16.0) L 12/05/16 02:55 Hct 31.1 % (36.0-48.0) L 12/05/16 02:55 MCV 86.1 fl (80.0-105.0) 12/05/16 02:55 MCH 29.4 pg (25.0-35.0) 12/05/16 02:55 MCHC 34.1 g/dl (31.0-37.0) 12/05/16 02:55 RDW 12.6 % (11.5-14.5) 12/05/16 02:55 Plt Count 220 10^3/uL (120.0-450.0) 12/05/16 02:55 MPV 11.7 fl (7.0-11.0) H 12/05/16 02:55 Gran % 45.4 % (50.0-68.0) L 12/05/16 02:55 Lymph % (Auto) 45.3 % (22.0-35.0) H 12/05/16 02:55 [place] % (Auto) 8.7 % (1.0-6.0) H 12/05/16 02:55 Eos % (Auto) 0.4 % (1.5-5.0) L 12/05/16 02:55 Baso % (Auto) 0.2 % (0.0-3.0) 12/05/16 02:55 Gran # 2.46 (1.4-6.5) 12/05/16 02:55 Lymph # 2.5 (1.2-3.4) 12/05/16 02:55 [place] # 0.5 (0.1-0.6) 12/05/16 02:55 Eos # 0.0 (0.0-0.7) 12/05/16 02:55 Baso # 0.01 K/mm3 (0.0-2.0) 12/05/16 02:55 Sodium 139 mmol/L (132-148) 12/05/16 02:55 Potassium 4.5 mmol/L (3.6-5.0) 12/05/16 02:55 Chloride 100 mmol/L (98-107) 12/05/16 02:55 Carbon Dioxide 26 mmol/L (21-33) 12/05/16 02:55 Anion Gap 18 (10-20) 12/05/16 02:55 BUN 15 mg/dL (7-21) 12/05/16 02:55 Creatinine 0.5 mg/dL (0.5-1.4) 12/05/16 02:55 Est GFR ( Amer) > 60 12/05/16 02:55 Est GFR (Non-Af Amer) > 60 12/05/16 02:55 Random Glucose 111 mg/dL (70-110) H 12/05/16 02:55 Calcium 9.4 mg/dL (8.4-10.5) 12/05/16 02:55 Total Bilirubin 0.4 mg/dL (0.2-1.3) 12/05/16 02:55 AST 31 U/L (15-39) 12/05/16 02:55 ALT 28 U/L (7-56) 12/05/16 02:55 Alkaline Phosphatase 59 U/L (38-133) 12/05/16 02:55 Total Protein 7.6 g/dL (5.8-8.3) 12/05/16 02:55 Albumin 3.9 g/dL (3.0-4.8) 12/05/16 02:55 Globulin 3.7 gm/dL 12/05/16 02:55 Albumin/Globulin Ratio 1.1 (1.1-1.8) 12/05/16 02:55 Attending/Attestation - Attestation I have personally seen and examined this patient.: Yes I have fully participated in the care of the patient.: Yes I have reviewed all pertinent clinical information, including history, physical exam and plan: Yes Notes (Text): 12/05/16 16:48 76 year old female iwth past medical history of diabetes and hypertension who presented with intractable neck pain. She had a recent MRI which showed multilevel cervical disc bulges. She was admitted for observation. Her symptoms improved today. She was seen by neurosurgery who recommended to avoid NSAIDs as she is scheduled for surgery soon next week. Copy of MRI was given to patient to review with pmd/surgeon. She states she has lyrica, flexeral and ultracet. Patient is discharged home to follow up with her pmd. Follow up with neurosurgery. Avoid NSAIDs for upcoming surgery. Eliel Francois MD Hospitalist.
--- NOTE | 2016-12-06 01:23 | CON ---
DATE: 12/05/2016 REASON FOR CONSULTATION: Acute neck pain. HISTORY OF PRESENT ILLNESS: The patient is a 76-year-old young lady who states that she had severe neck pain about 20 years ago which improved with physical therapy and wearing a soft cervical collar. She is fine up until a week ago when, with no antecedent trauma, she developed acute flare up of neck pain once more. She was seen in the emergency room on . She was worried there something wrong with her brain as she had pain in the back of her head as well as her neck. Evidently a CAT scan was done which did not show any pathology. MRI of the neck was done which showed multilevel disc derangement with some foraminal narrowing and stenosis. She was given pain medicine and a soft collar to wear but she states that it was feeling a little better, but then she took the collar off at night and she woke up in the middle of the night with severe pain once more and came back to the hospital. Complicating matters somewhat is that she is scheduled for open heart surgery at [facility] in [place] this coming Wednesday. She denies any radiation into her extremities. No loss of bowel or bladder control. No loss of ability to function with her hands. No reported gait disturbance. PAST MEDICAL HISTORY: Significant for hypertension, aortic stenosis, and type II diabetes. MEDICATIONS: Are as listed on the chart. ALLERGIES: SHE IS NOT ALLERGIC TO ANY MEDICINES. PAST SURGICAL HISTORY: Significant for bilateral knee replacement as well as breast biopsy. SOCIAL HISTORY: She denies use of tobacco or alcohol. PHYSICAL EXAMINATION GENERAL: She is very tender along the cervical spinal processes and trapezial muscle distribution more in the left than the right. She can flex her chin to her chest, but her extension and lateral rotation is definitely limited and she states it is not normal for her. She moves both upper extremities fully and actively. Her sensory is intact to light touch throughout. Motor strength is 5/5 in all groups tested. She has good collar sewer strength. Good distal pulses. No Saldivar's noted. Reflexes appear symmetrical. Her MRI shows disc collapse in the mid cervical region with loss of normal lordosis. More in the way of disc bulging and placement of the cord particularly at C6-C7 level. No obvious vertebral body or spinal cord abnormalities otherwise. IMPRESSION: Acute cervical sprain. I would recommend a course of outpatient physical therapy and have her to continue to wear the collar just slowly taper it off may be starting half hour a day and then see how she does with that. I would definitely wear it at night time and then see how she does with that. Obviously if she is scheduled for open heart surgery, I really do not want to hold that up as I will talk to her doctor about discontinuing any NSAIDs and anti-inflammatories as such that might prolong bleeding time and cause a problem for her upcoming operation. We will be happy to follow her as an outpatient and proceed accordingly. Thank you for allowing me to participate in the care of your patient. Eliel Ledesma MD
== END 2016-12-05 16:34 | disposition home or self-care (01) ==
LOC: ED 01:13 → ERH 03:42 → 5RSO 06:45
PROVIDERS: ADMIT Internal Medicine; ATTEND Internal Medicine
DX: M48.02 Spinal stenosis, cervical region (principal); S13.4XXA Sprain of ligaments of cervical spine, initial encounter; I10 Essential (primary) hypertension; E11.9 Type 2 diabetes mellitus without complications; M54.2 Cervicalgia; I35.0 Nonrheumatic aortic (valve) stenosis; Z96.653 Presence of artificial knee joint, bilateral; Z79.84 Long term (current) use of oral hypoglycemic drugs
CPT/HCPCS: 80053; 85025; 96372; 96374; 99283; G0378; J1885; J2270

== ENCOUNTER 2017-01-10 11:21 | Emergency (ER) | payer MEDICARE, MEDICAID ==
[2017-01-10 11:24] VITALS: BMI 29.9
[2017-01-10 11:27] VITALS: TEMP 98.4
--- NOTE | 2017-01-10 13:17 | RAD ---
PROCEDURE: Left Knee Radiographs. HISTORY: Pain. COMPARISON: None. FINDINGS: BONES: Status post open reduction and internal fixation of an old fracture in the proximal tibia. No hardware complications. No acute displaced fracture. JOINTS: Status post total knee arthroplasty. Bone alignment is normal. JOINT EFFUSION: There is a small suprapatellar joint effusion. OTHER FINDINGS: None. IMPRESSION: No acute displaced fracture or dislocation.
--- NOTE | 2017-01-10 13:42 | ED PDOC ---
Arrival/HPI - General Chief Complaint: Lower Extremity Problem/Injury Time Seen by Provider: 01/10/17 12:10 Historian: Patient - History of Present Illness Narrative History of Present Illness (Text): 01/10/17 13:34 A 76 year old female, whose past medical history includes ORIF of the left knee , presents to the emergency department with 3-4 day duration, worsening left knee pain. The patient states that at baseline she ambulates with a cane. The patient denies trauma/injury, fevers, chills, headache, dizziness, chest pain, shortness of breath, dyspnea on exertion, cough, abdominal pain, nausea, vomiting, diarrhea, back pain, neck pain, urinary/bowel changes, or any other complaint. Time/Duration: Other (3-4 Days) Symptom Onset: Sudden Symptom Course: Unchanged Activities at Onset: Rest, Light Context: Home Past Medical History - Provider Review Nursing Documentation Reviewed: Yes - Infectious Disease Hx of Infectious Diseases: None - Tetanus Immunization Tetanus Immunization: Unknown - Cardiac Hx Cardiac Disorders: Yes Hx Hypertension: Yes - Pulmonary Hx Respiratory Disorders: No - Neurological Hx Neurological Disorder: Yes Hx Dementia: Yes Hx Migraine: Yes - HEENT Hx HEENT Disorder: No - Renal Hx Renal Disorder: No - Endocrine/Metabolic Hx Endocrine Disorders: Yes Hx Diabetes Mellitus Type 2: Yes - Hematological/Oncological Hx Blood Disorders: No - Integumentary Hx Dermatological Disorder: No - Musculoskeletal/Rheumatological Hx Musculoskeletal Disorders: Yes Hx Degenerative Joint Disease: Yes Hx Falls: Yes Hx Osteoarthritis: Yes - Gastrointestinal Hx Gastrointestinal Disorders: Yes (Gastritis) - Genitourinary/Gynecological Hx Genitourinary Disorders: No - Psychiatric Hx Psychophysiologic Disorder: No Hx Substance Use: No - Surgical History Hx Orthopedic Surgery: Yes (BL knee replacement) - Anesthesia Hx Anesthesia: Yes Hx Anesthesia Reactions: No Hx Malignant Hyperthermia: No - Suicidal Assessment Feels Threatened In Home Enviroment: No Family/Social History - Physician Review Nursing Documentation Reviewed: Yes Family/Social History: No Known Family HX Smoking Status: Never Smoked Hx Alcohol Use: No Hx Substance Use: No Allergies/Home Meds Allergies/Adverse Reactions: Allergies No Known Allergies Allergy (Verified 11/27/16 13:13) Home Medications: Home Meds Medication Instructions Recorded Confirmed Acetaminophen/Butalbital/Caf 1 tab PO PRN PRN 11/27/16 01/10/17 [Fioricet] Brimonidine 0.2% [Alphagan 0.2% 1 drop LEFTEYE TID 11/27/16 01/10/17 Opht] Colchicine [Colcrys] 1 tab PO DAILY 11/27/16 01/10/17 Cyanocobalamin (Vitamin B-12) 1 ml SQ QWK 11/27/16 01/10/17 [Liquid B12] Diclofenac Sodium [Pennsaid] 1 appful TD DAILY 11/27/16 01/10/17 Difluprednate [Durezol] 1 drop LEFTEYE DAILY 11/27/16 01/10/17 Ergocalciferol (Vitamin D2) 1.25 mg PO QWK 11/27/16 01/10/17 [Vitamin D2] Ibandronate Sodium [Boniva] 70 mg PO DAILY 11/27/16 01/10/17 Linaclotide [Linzess] 1 tab PO DAILY 11/27/16 01/10/17 Memantine [Namenda] 28 mg PO DAILY 11/27/16 01/10/17 Oxycodone HCl/Acetaminophen 1 tab PO PRN PRN 11/27/16 01/10/17 [Oxycodone-Acetaminophen 5-325] Pregabalin [Lyrica] 1 tab PO TID 11/27/16 01/10/17 Rosuvastatin Calcium [Crestor] 1 tab PO DAILY 11/27/16 01/10/17 Sitagliptin Phos/Metformin HCl 1 tab PO BID 11/27/16 01/10/17 [Janumet 50-1,000 mg Tablet] Solifenacin Succinate [Vesicare] 1 tab PO DAILY 11/27/16 01/10/17 Timolol [Betimol] 1 drop LEFTEYE DAILY 11/27/16 01/10/17 amLODIPine [Norvasc] 1 tab PO DAILY 11/27/16 01/10/17 Review of Systems - Physician Review All systems were reviewed & negative as marked: Yes Physical Exam - Physical Exam Narrative Physical Exam (Text): 01/10/17 13:36 - Review of Systems Constitutional: Normal. absent: Fatigue, Weight Change, Fevers Eyes: Normal ENT: denies sore throat, denies tristhmus Respiratory: Normal. absent: SOB, Cough, Sputum Cardiovascular: absent: Chest Pain, Palpitations, Syncope Gastrointestinal: Normal. absent: Abdominal Pain, Diarrhea, Nausea, Vomiting Genitourinary: Normal. absent: Dysuria, Frequency, Hematuria, vaginal bleeding Musculoskeletal: (+) Left knee pain. absent: Back Pain, Neck Pain Skin: no rashes, no erythema Neurological: absent: Focal Weakness Endocrine: Normal Hemo/Lymphatic: Normal Psychiatric: No suicidal or homicidal ideations Physical exam Patient appears age appropriate in no distress, speaking full sentences without difficulty - Systems Exam Head: Present: Atraumatic, Normocephalic Pupils: Present: PERRL Extroacular Muscles: Present: EOMI Conjunctiva: Present: Normal Mouth: Present: Moist Mucous Membranes Neck: Present: Normal Range of Motion. No: MIDLINE TENDERNESS, Paraspinal Tenderness Respiratory/Chest: Present: Clear to Auscultation, Good Air Exchange. No: Respiratory Distress, Accessory Muscle Use, Tachypneic Cardiovascular: Present: Regular Rate and Rhythm, Normal S1, S2, Peripheal Pulses Present. No: Murmurs Abdomen: Present: Normal Bowel Sounds. No: Tenderness, Distention, Peritoneal Signs, Rebound, Guarding Back: Present: Normal Inspection. No: Midline Tenderness, Paraspinal Tenderness Upper Extremity: Present: Normal Inspection. No: Cyanosis, Edema Lower Extremity: Present: L knee: Distal neurovascular fully intact. Patellar tenderness to palpation. Decreased ROM due to pain. No: Edema, left knee swelling when compared to the right. Warmth. Erythema. Streaking. Fluctuance. Neurological: Present: GCS=15, Speech Normal, cranial nerves II through XII fully intact with no cerebellar abnormality, neurosensory fully intact. No focal neurological deficits. Skin: Present: Warm, Dry, Normal Color. No: Rashes Lymphatic: Present: OX3, NI, NC Psychiatric: Present: Alert, Oriented x 3, Normal Insight, Normal Concentration Vital Signs Reviewed: Yes Vital Signs Temp Pulse Resp BP Pulse Ox 01/10/17 15:16 132/86 01/10/17 15:14 91 H 18 96 01/10/17 13:48 73 18 113/52 L 98 01/10/17 11:27 98.4 F 82 20 130/57 L 97 Temperature: Afebrile Blood Pressure: Hypertensive Pulse: Regular Respiratory Rate: Normal Appearance: Positive for: Well-Appearing, Non-Toxic, Comfortable Pain Distress: None Mental Status: Positive for: Alert and Oriented X 3 Medical Decision Making ED Course and Treatment: 01/10/17 13:42 Impression: A 76 year old female with 3-4 day duration, worsening left knee pain. On exam, distal neurovascular fully intact, patellar tenderness to palpation, decreased ROM due to pain. No left knee swelling when compared to the right, warmth, erythema, streaking, or fluctuance. Based on hx and PE, no suspicion for infectious process. Plan: -- Left Knee X-Ray -- Left Lower Extremity Vein Ultrasound -- Morphine and Toradol -- Reassess and disposition Prior Visits: Notes and results from previous visits were reviewed. Patient was last seen in the emergency department on 12/05/2016 for neck pain. Progress Notes: 01/10/17 13:45: On reevaluation, patient was still complaining of pain. An ultrasound and more medication was ordered. Left Knee Radiographs Dictator : TAMARA COTA MD Report Date : 01/10/2017 13:15:45 IMPRESSION: No acute displaced fracture or dislocation. 01/10/17 14:25: Patient's ultrasound is negative for DVT as per preliminary report. 01/10/17 15:23 pt ambulates with a cane in the ER states pain much better states she feels comfortable being dc'd home with outpatient f/u had an extensive d/w pt that although xrays are negative for any acute bony abnormality, it is still very important to fu with pmd and ortho specialist for further w/u and testing such as MRI to r/o any ligamentous/tendenous/meniscal injury. Pt verbalized full understanding of above discussion. Pt states she understands to return to the ER right away for new or worsening symptoms or for inability to f/u with PMD or specialist as instructed. Patient states that she fully agrees with and understands discharge instructions. States that she agrees with the plan and disposition. Verbalized and repeated discharge instructions and plan. I have given the patient opportunity to ask any additional questions. - Lab Interpretations I have reviewed the lab results: Yes - RAD Interpretation Radiology Orders: 01/10/17 12:11 KNEE LEFT 2 VIEWS (AP & LAT) [RAD] Stat 01/10/17 13:33 DUPLEX LOWER EXTRM VEIN LEFT [US] Stat - Medication Orders Current Medication Orders: Discontinued Medications Ketorolac Tromethamine (Toradol) 30 mg IM STAT STA Stop: 01/10/17 12:12 Last Admin: 01/10/17 12:17 Dose: 30 mg MAR Pain Assessment Document 01/10/17 12:17 GMD (Rec: 01/10/17 12:17 D [id number]) Pain Reassessment Is this a pain reassessment? No Sleep Is patient sleeping during reassessment? No Presence of Pain Presence of Pain Yes Location Left, Right or Bilateral Left Pain Location Body Site Knee IM Administration Charges Document 01/10/17 12:17 GMD (Rec: 01/10/17 12:17 D [id number]) Injection Site MAR Injection Site Left Deltoid Charges for Administration # of IM Administrations 1 Morphine Sulfate (Morphine) 6 mg IM STAT STA Stop: 01/10/17 13:33 Last Admin: 01/10/17 13:49 Dose: Not Given Non-Admin Reason: Patient Refused - Scribe Statement The provider has reviewed the documentation as recorded by the Scribe Hiral Belle Provider Scribe Attestation: All medical record entries made by the Scribe were at my direction and personally dictated by me. I have reviewed the chart and agree that the record accurately reflects my personal performance of the history, physical exam, medical decision making, and the department course for this patient. I have also personally directed, reviewed, and agree with the discharge instructions and disposition. Disposition/Present on Arrival - Present on Arrival Any Indicators Present on Arrival: No History of DVT/PE: No History of Uncontrolled Diabetes: No Urinary Catheter: No History of Decub. Ulcer: No History Surgical Site Infection Following: None - Disposition Have Diagnosis and Disposition been Completed?: Yes Diagnosis: Knee pain Disposition: HOME/ ROUTINE Disposition Time: 15:40 Patient Plan: Discharge Condition: GOOD Discharge Instructions (ExitCare): Arthralgia (ED), Knee Pain (ED) Additional Instructions: PLEASE RETURN TO THE EMERGENCY DEPARTMENT FOR NEW OR WORSENING SYMPTOMS. RETURN RIGHT AWAY IF YOU CANNOT FOLLOW UP WITH YOUR PRIMARY CARE DOCTOR, CLINIC, OR SPECIALIST IN 1-2 DAYS. Prescriptions: Ibuprofen [Motrin] 600 mg PO Q8 PRN #12 tab PRN Reason: Pain, Moderate (4-7) Referrals: Adarsh Brunner, DO [Staff Provider] - Follow up with primary Forms: [employer] (Algerian)
[2017-01-10 13:48] VITALS: RESP 18
[2017-01-10 15:16] VITALS: BP 132/86; PULSE 91; O2SAT 96
--- NOTE | 2017-01-10 18:32 | US ---
PROCEDURE: Left lower extremity venous US HISTORY: Leg pain and swelling. Evaluate for DVT. PHYSICIAN(S): Wu Rodriguez MD. TECHNIQUE: Duplex sonography and color-flow Doppler with graded compression were used to evaluate the deep venous system of the left lower extremity. FINDINGS: The visualized deep venous system of the left lower extremity is sonographically normal and compressible. Normal wave forms and augmentation are seen. There is no sonographic evidence for deep venous thrombosis in the visualized segments of the left lower extremity. IMPRESSION: 1. No sonographic evidence for deep venous thrombosis in the visualized segments of the left lower extremity.
== END 2017-01-10 16:00 | disposition home or self-care (01) ==
LOC: ED 11:21
DX: M25.562 Pain in left knee (principal); I10 Essential (primary) hypertension
CPT/HCPCS: 73560; 93971; 96372; 99285; J1885

== ENCOUNTER 2017-09-28 19:54 | Emergency (ER) | payer MEDICARE, MEDICAID ==
[2017-09-28 19:56] VITALS: BMI 29.9
--- NOTE | 2017-09-28 21:42 | ED PDOC ---
Arrival/HPI - General Chief Complaint: Back Pain Time Seen by Provider: 09/28/17 19:59 Past Medical History - Infectious Disease Hx of Infectious Diseases: None - Tetanus Immunization Tetanus Immunization: Unknown - Cardiac Hx Cardiac Disorders: Yes Hx Hypertension: Yes - Pulmonary Hx Respiratory Disorders: No - Neurological Hx Neurological Disorder: Yes Hx Dementia: Yes Hx Migraine: Yes - HEENT Hx HEENT Disorder: No - Renal Hx Renal Disorder: No - Endocrine/Metabolic Hx Endocrine Disorders: Yes Hx Diabetes Mellitus Type 2: Yes - Hematological/Oncological Hx Blood Disorders: No - Integumentary Hx Dermatological Disorder: No - Musculoskeletal/Rheumatological Hx Musculoskeletal Disorders: Yes Hx Degenerative Joint Disease: Yes Hx Falls: Yes Hx Osteoarthritis: Yes - Gastrointestinal Hx Gastrointestinal Disorders: Yes (Gastritis) - Genitourinary/Gynecological Hx Genitourinary Disorders: No - Psychiatric Hx Psychophysiologic Disorder: No Hx Substance Use: No - Surgical History Hx Orthopedic Surgery: Yes (BL knee replacement) - Anesthesia Hx Anesthesia: Yes Hx Anesthesia Reactions: No Hx Malignant Hyperthermia: No - Suicidal Assessment Feels Threatened In Home Enviroment: No Family/Social History Smoking Status: Never Smoked Hx Alcohol Use: No Hx Substance Use: No Allergies/Home Meds Allergies/Adverse Reactions: Allergies No Known Allergies Allergy (Verified 11/27/16 13:13) Home Medications: Home Meds Medication Instructions Recorded Confirmed Acetaminophen/Butalbital/Caf 1 tab PO PRN PRN 11/27/16 01/10/17 [Fioricet] Brimonidine 0.2% [Alphagan 0.2% 1 drop LEFTEYE TID 11/27/16 01/10/17 Opht] Colchicine [Colcrys] 1 tab PO DAILY 11/27/16 01/10/17 Cyanocobalamin (Vitamin B-12) 1 ml SQ QWK 11/27/16 01/10/17 [Liquid B12] Diclofenac Sodium [Pennsaid] 1 appful TD DAILY 11/27/16 01/10/17 Difluprednate [Durezol] 1 drop LEFTEYE DAILY 11/27/16 01/10/17 Ergocalciferol (Vitamin D2) 1.25 mg PO QWK 11/27/16 01/10/17 [Vitamin D2] Ibandronate Sodium [Boniva] 70 mg PO DAILY 11/27/16 01/10/17 Linaclotide [Linzess] 1 tab PO DAILY 11/27/16 01/10/17 Memantine [Namenda] 28 mg PO DAILY 11/27/16 01/10/17 Oxycodone HCl/Acetaminophen 1 tab PO PRN PRN 11/27/16 01/10/17 [Oxycodone-Acetaminophen 5-325] Pregabalin [Lyrica] 1 tab PO TID 11/27/16 01/10/17 Rosuvastatin Calcium [Crestor] 1 tab PO DAILY 11/27/16 01/10/17 Sitagliptin Phos/Metformin HCl 1 tab PO BID 11/27/16 01/10/17 [Janumet 50-1,000 mg Tablet] Solifenacin Succinate [Vesicare] 1 tab PO DAILY 11/27/16 01/10/17 Timolol [Betimol] 1 drop LEFTEYE DAILY 11/27/16 01/10/17 amLODIPine [Norvasc] 1 tab PO DAILY 11/27/16 01/10/17 Physical Exam Vital Signs Temp Pulse Resp BP Pulse Ox 09/28/17 20:02 98.4 F 74 18 152/84 H 98 Medical Decision Making ED Course and Treatment: 09/28/17 Patient Seen With Resident: In agreement with resident note which contains more details about the patient. Patient was seen and evaluated with resident. Came up with plan and treatment together. Disposition/Present on Arrival - Present on Arrival History of DVT/PE: No History of Uncontrolled Diabetes: No Urinary Catheter: No History of Decub. Ulcer: No History Surgical Site Infection Following: None - Disposition Referrals: Shon Price MD [Primary Care Provider] - Follow up with primary
[2017-09-28] MEDS ORDERED: Oxycodone/Acetaminophen 2.5/325 mg Tab PO STA (21:50)
--- NOTE | 2017-09-28 22:30 | ED PDOC ---
Arrival/HPI - General Historian: Patient <Primitivo Patel - Last Filed: 09/28/17 22:26> - History of Present Illness Time/Duration: < week (3 days) Symptom Course: Unchanged, Worsening Severity Level: Severe Activities at Onset: Rest Context: Home <Long Manriquez - Last Filed: 09/28/17 23:51> - General Chief Complaint: Back Pain Time Seen by Provider: 09/28/17 19:59 - History of Present Illness Narrative History of Present Illness (Text): 09/28/17 22:26 77 yo with CAD s/p CABG, dilated cardiomyopathy s/p ICD, DMII, and HLD who presents with complaint of right-sided neck pain x3 days. Denies trauma, falls , or insult that triggered the neck pain, it simply developed in the middle of the day 3 days prior and has not improved. Reports mild improvement with tylenol, none with Voltarin gel. Denies radiation of pain up/down neck, into jaw or chest, or down arms. Reports worse with most head movement or with opening jaw fully, but denies actual pain at jaw/TMJ site, only at right neck. Never had pain like this before. Denies fevers, chills, chest pain, nausea, emesis, shortness of breath, dizziness, room spinning, or focal weakness. No sense of mass at site, no dysphagia/dysphonia, no difficulty swallowing. PO intake remains at baseline. All other ROS in 12-system review negative. PMH: as above PSH: CABG, ICD placement, Cardiac cath Fam Hx: pt unsure Soc Hx: Deneis tobacco/alcohol/illicits PMD: Wassef (Primitivo Patel) Past Medical History - Provider Review Nursing Documentation Reviewed: Yes - Infectious Disease Hx of Infectious Diseases: None - Tetanus Immunization Tetanus Immunization: Unknown - Cardiac Hx Cardiac Disorders: Yes Hx Hypertension: Yes - Pulmonary Hx Respiratory Disorders: No - Neurological Hx Neurological Disorder: Yes Hx Dementia: Yes Hx Migraine: Yes - HEENT Hx HEENT Disorder: No - Renal Hx Renal Disorder: No - Endocrine/Metabolic Hx Endocrine Disorders: Yes Hx Diabetes Mellitus Type 2: Yes - Hematological/Oncological Hx Blood Disorders: No - Integumentary Hx Dermatological Disorder: No - Musculoskeletal/Rheumatological Hx Musculoskeletal Disorders: Yes Hx Degenerative Joint Disease: Yes Hx Falls: Yes Hx Osteoarthritis: Yes - Gastrointestinal Hx Gastrointestinal Disorders: Yes (Gastritis) - Genitourinary/Gynecological Hx Genitourinary Disorders: No - Psychiatric Hx Psychophysiologic Disorder: No Hx Substance Use: No - Surgical History Hx Orthopedic Surgery: Yes (BL knee replacement) - Anesthesia Hx Anesthesia: Yes Hx Anesthesia Reactions: No Hx Malignant Hyperthermia: No - Suicidal Assessment Feels Threatened In Home Enviroment: No <Primitivo Patel - Last Filed: 09/28/17 22:26> - Travel History Have you recently traveled outside [place] w/in the past 3 mons?: No - Past History Past History: Non-Contributing - Reproductive Menopause: Yes Currently : No <Long Manriquez - Last Filed: 09/28/17 23:51> Family/Social History - Physician Review Nursing Documentation Reviewed: Yes Family/Social History: Unknown Family HX Smoking Status: Never Smoked Hx Alcohol Use: No Hx Substance Use: No <Primitivo Patel - Last Filed: 09/28/17 22:26> Hx Substance Use Treatment: No <Long Manriquez - Last Filed: 09/28/17 23:51> Allergies/Home Meds <Primitivo Patel - Last Filed: 09/28/17 22:26> <Long Manriquez - Last Filed: 09/28/17 23:51> Allergies/Adverse Reactions: Allergies No Known Allergies Allergy (Verified 11/27/16 13:13) Home Medications: Home Meds Medication Instructions Recorded Confirmed Acetaminophen/Butalbital/Caf 1 tab PO PRN PRN 11/27/16 01/10/17 [Fioricet] Brimonidine 0.2% [Alphagan 0.2% 1 drop LEFTEYE TID 11/27/16 01/10/17 Opht] Colchicine [Colcrys] 1 tab PO DAILY 11/27/16 01/10/17 Cyanocobalamin (Vitamin B-12) 1 ml SQ QWK 11/27/16 01/10/17 [Liquid B12] Diclofenac Sodium [Pennsaid] 1 appful TD DAILY 11/27/16 01/10/17 Difluprednate [Durezol] 1 drop LEFTEYE DAILY 11/27/16 01/10/17 Ergocalciferol (Vitamin D2) 1.25 mg PO QWK 11/27/16 01/10/17 [Vitamin D2] Ibandronate Sodium [Boniva] 70 mg PO DAILY 11/27/16 01/10/17 Linaclotide [Linzess] 1 tab PO DAILY 11/27/16 01/10/17 Memantine [Namenda] 28 mg PO DAILY 11/27/16 01/10/17 Oxycodone HCl/Acetaminophen 1 tab PO PRN PRN 11/27/16 01/10/17 [Oxycodone-Acetaminophen 5-325] Pregabalin [Lyrica] 1 tab PO TID 11/27/16 01/10/17 Rosuvastatin Calcium [Crestor] 1 tab PO DAILY 11/27/16 01/10/17 Sitagliptin Phos/Metformin HCl 1 tab PO BID 11/27/16 01/10/17 [Janumet 50-1,000 mg Tablet] Solifenacin Succinate [Vesicare] 1 tab PO DAILY 11/27/16 01/10/17 Timolol [Betimol] 1 drop LEFTEYE DAILY 11/27/16 01/10/17 amLODIPine [Norvasc] 1 tab PO DAILY 11/27/16 01/10/17 Review of Systems - Physician Review All systems were reviewed & negative as marked: Yes (as per HPI) - Review of Systems Constitutional: Normal. absent: Fevers Eyes: Normal. absent: Vision Changes ENT: Other (right sided neck pain, constant, worse with head movement or palpation of site). absent: Tinnitus, TMJ Pain, Voice Changes, Sore Throat Respiratory: Normal. absent: SOB, Cough, Wheezing Cardiovascular: Normal. absent: Chest Pain, Palpitations, BEDOLLA <Primitivo Patel - Last Filed: 09/28/17 22:26> Physical Exam Vital Signs Reviewed: Yes Temperature: Afebrile Blood Pressure: Hypertensive Pulse: Regular Respiratory Rate: Normal Appearance: Positive for: Well-Appearing, Non-Toxic, Uncomfortable Pain Distress: Moderate Mental Status: Positive for: Alert and Oriented X 3 - Systems Exam Head: Present: Atraumatic, Normocephalic Pupils: No: Pinpoint Extroacular Muscles: Present: EOMI. No: Gaze Palsy, Entrapment Conjunctiva: Present: Normal. No: Injected Mouth: Present: Moist Mucous Membranes, Normal Lips, Normal Tounge, Normal Teeth. No: Dry, Drooling Pharnyx: Present: Normal. No: ERYTHEMA, EXUDATE Nose (External): Present: Atraumatic. No: Abrasion, Laceration Nose (Internal): Present: Normal Inspection, No Active Bleeding. No: Epistaxis Neck: Present: Trachea Midline. No: Normal Range of Motion (restricting range of motion and guarding due to pain, but passive ROM normal; pain with sidebending to and away from right, rotation to and away from right, and with moderate degree of flexion, no pain appreciated with cervical extension), MIDLINE TENDERNESS (no cervial spinal pain, tenderness to palpation, or radiation of neck pain into spine), JVD Respiratory/Chest: Present: Clear to Auscultation, Good Air Exchange. No: Respiratory Distress, Accessory Muscle Use, Wheezes, Rales, Rhonchi, Tachypneic , Tender to Palpation Cardiovascular: Present: Regular Rate and Rhythm, Normal S1, S2. No: Murmurs, Irregular Rhythm, Tachycardic, Bradycardic Abdomen: Present: Normal Bowel Sounds. No: Tenderness, Distention, Peritoneal Signs, Guarding, Mass/Organomegaly Back: Present: Normal Inspection Upper Extremity: Present: Normal Inspection, Normal ROM, NORMAL PULSES. No: Cyanosis, Edema, Tenderness, Swelling, Erythema, Deformity Lower Extremity: Present: Normal Inspection, NORMAL PULSES, Normal ROM. No: Edema, CALF TENDERNESS, Cyanosis, Tenderness, Swelling, Erythema, Deformity Neurological: Present: GCS=15, Speech Normal, Motor Func Grossly Intact, Normal Sensory Function Skin: Present: Warm, Dry, Normal Color, Other (healing midline chest scar (site of CABG procedure)). No: Rashes Lymphatic: No: Cervical Adenopathy Psychiatric: Present: Alert, Oriented x 3, Normal Insight, Normal Concentration , Anxious <Primitivo Patel - Last Filed: 09/28/17 22:26> <Long Manriquez - Last Filed: 09/28/17 23:51> Vital Signs Temp Pulse Resp BP Pulse Ox 09/28/17 23:23 98.3 F 80 18 146/82 99 09/28/17 23:19 98.3 F 80 16 146/82 98 09/28/17 20:02 98.4 F 74 18 152/84 H 98 Medical Decision Making Reassessment Condition: Re-examined, Improved <Primitivo Patel - Last Filed: 09/28/17 22:26> Re-evaluation Time: 11:00 - RAD Interpretation Physical Fitness Teacher: ED Physician - EKG Interpretation Interpreted by ED Physician: Yes Type: 12 lead EKG Comparison: Similar to previous EKG <Long Manriquez - Last Filed: 09/28/17 23:51> ED Course and Treatment: 09/28/17 21:34 Ddx: muscle spasm vs cervical nerve impingement vs thoracic outlet syndrome No appreciable involvement of shoulder or arm, full ROM and strength in upper extremities, No TMJ involvement or tenderness Spastic muscles along R neck palpated, but tenderness not consistent with since muscle grouping, not consistent with Trapezius or SCM muscle group movement mechanics Percocet 2.5mg PO x1, Valium 2mg x1, and Motrin 400mg x1 for pain control and muscle relaxation CXR to rule out pulm process and to assess thoracic outlet and lower cervical vertebrae EKG to rule out atypical ACS presentation given cardiac hx 09/28/17 22:37 EKG notable for RBBB, mild QTc prolongation CXR notable for cardiomegaly, but no acute process, effusion, or consolidation Pt reports pain improved on current regimen Will discharge with instructed to use 400mg Motrin PRN and heating pad/hot water bottle to affected area PRN, Valium 2mg PRN for muscle relaxation (Primitivo Patel) I performed the hx and physical exam of the patient and discussed their mgt with the RESIDENT. I reviewed the RESIDENT's NOTE and agree with the assessment and plan of care. NIH stroke scale ~ 0 no crepitus noted to pt's right chest wall/posterior region upper ext/lower ext strength 5/5 grossly intact in all limbs pt felt improved after anti-inflammatory/pain meds as well as muscle relaxant medications pt is made aware of her medical results pt is encouraged no heavy lifting pt is encouraged outpt f/u pt will be discharged home (Long Manriquez) - RAD Interpretation Narrative RAD Interpretations (Text): 09/28/17 23:48 Chest X-Ray - NAD, as read by me (Long Manriquez) Radiology Orders: 09/28/17 21:50 CHEST PORTABLE [RAD] Stat - EKG Interpretation EKG Interpretation (Text): 09/28/17 23:48 NSR at 65 bpm, normal axis, no ectopy, + RBBB, inverted T in leads III, V1, V2, no st changes; ABNL EKG; no gross changes compare with old ekg 01/2014 (Long Manriquez) - Medication Orders Current Medication Orders: Discontinued Medications Diazepam (Valium) 2 mg PO ONCE ONE PRN Reason: Protocol Stop: 09/28/17 21:51 Last Admin: 09/28/17 22:01 Dose: 2 mg Ibuprofen (Motrin Tab) 400 mg PO STAT STA Stop: 09/28/17 21:51 Last Admin: 09/28/17 22:01 Dose: 400 mg Re-Assess: MAR Pain/Vitals Document 09/28/17 23:01 HI (Rec: 09/28/17 23:01 [id number] Pain Reassessment Is This A Pain ReAssessment? Yes Sleep Is patient sleeping during reassessment? No Presence of Pain Presence of Pain No Oxycodone/Acetaminophen (Percocet 2.5/325 Mg Tab) 1 tab PO STAT STA Stop: 09/28/17 21:51 Last Admin: 09/28/17 22:01 Dose: 1 tab Disposition/Present on Arrival - Present on Arrival Any Indicators Present on Arrival: No History of DVT/PE: No History of Uncontrolled Diabetes: No Urinary Catheter: No History of Decub. Ulcer: No History Surgical Site Infection Following: None - Disposition Have Diagnosis and Disposition been Completed?: Yes Disposition Time: 22:50 Patient Plan: Discharge <Primitivo Patel - Last Filed: 09/28/17 22:26> <Long Manriquez - Last Filed: 09/28/17 23:51> - Disposition Diagnosis: Neck pain on right side, Muscle spasm Disposition: HOME/ ROUTINE Condition: GOOD Discharge Instructions (ExitCare): Neck Pain, Muscle Spasms (DC) Print Language: SYRIAC Additional Instructions: You were seen in the ED for your neck pain. Scans of your chest and an EKG of your heart were negative for any acute issues. You most likely have a spasm of the neck muscles on the right. Please take Motrin 400mg as needed for pain, and use a heating pad or hot water bottle to the neck to help with the muscle spasm. You have also been given a script for a muscle relaxant medication, Valium; take as needed, and DO NOT DRIVE while taking or after recently taking Valium. Please follow up with your primary medical doctor within 1 week. If the pain returns and does not get better, please follow up with an Orthopedist; a referral has been provided. Please return to a hospital if you experience worsening or newly concerning symptoms. Prescriptions: diaZEpam [Valium] 2 mg PO TID PRN #10 tab PRN Reason: Muscle Spasm Ibuprofen [Motrin] 400 mg PO QID PRN #30 tab PRN Reason: Pain, Mild (1-3) oxyCODONE/Acetaminophen [Percocet 5/325 mg Tab] 1 ea PO TID PRN #10 tab PRN Reason: Pain, Moderate (4-7) Referrals: Shon Price MD [Primary Care Provider] - Follow up with primary Betty Sales MD [Staff Provider] - Follow up with primary Forms: McPhy (Kiswahili)
[2017-09-28 23:23] VITALS: BP 146/82; PULSE 80; TEMP 98.3
[2017-09-28 23:24] VITALS: RESP 18; O2SAT 99
--- NOTE | 2017-09-29 10:13 | RAD ---
HISTORY: neck pain COMPARISON: No prior. FINDINGS: LUNGS: No active pulmonary disease. PLEURA: No significant pleural effusion identified, no pneumothorax apparent. CARDIOVASCULAR: Minimal cardiomegaly - Atherosclerotic vascular calcifications present. . Position/ configuration of pacemaker Status post midline sternotomy with coronary artery bypass clips noted Pulmonary vasculature probably top-normal. OSSEOUS STRUCTURES: Bilateral shoulder arthrosis Thoracic spondylosis. VISUALIZED UPPER ABDOMEN: Normal. OTHER FINDINGS: None. IMPRESSION: Mild cardiomegaly. Probable top-normal pulmonary vasculature. Postop changes Other findings -as above.
--- NOTE | 2017-09-29 17:01 | CARD ---
APPROVED REPORT EKG Measurement Heart [id number] <Conclusion> Normal sinus rhythm Possible Left atrial enlargement Right bundle branch block Abnormal ECG
== END 2017-09-28 23:23 | disposition home or self-care (01) ==
LOC: ED 19:54
DX: M54.2 Cervicalgia (principal); M62.838 Other muscle spasm; E11.9 Type 2 diabetes mellitus without complications; E78.5 Hyperlipidemia, unspecified; I10 Essential (primary) hypertension; I25.10 Atherosclerotic heart disease of native coronary artery without angina pectoris; Z95.1 Presence of aortocoronary bypass graft